=== PATIENT | male | born 1990 | race African-American/Black ===

== ENCOUNTER 2017-03-03 00:15 | Emergency (ER) | payer BC ==
[~2017-03-03] VITALS: Ht 188 cm; Wt 90.7 kg
[2017-03-03 00:15] VITALS: BP 120/73
[2017-03-03] MEDS ORDERED: IBUPROFEN 400 MG TABLET ONE (01:36)
[2017-03-03] MEDS ORDERED: IBUPROFEN 400 MG TABLET PO ONE (02:00)
== END 2017-03-03 02:38 | disposition home or self-care (01) ==
LOC: ER 00:20
DX: M20.012 Mallet finger of left finger(s) (principal); Z90.89 Acquired absence of other organs; Z88.0 Allergy status to penicillin; X58.XXXA Exposure to other specified factors, initial encounter; Y93.67 Activity, basketball; Y92.89 Other specified places as the place of occurrence of the external cause; Y99.8 Other external cause status
CPT/HCPCS: 73140-TC; A4606; Z7610